=== PATIENT | female | born 1985 | race Caucasian/White ===

== ENCOUNTER 2021-09-02 20:21 | Emergency (ER) | payer OTHER, SELFPAY ==
[2021-09-02 20:24] VITALS: BP 137/79; PULSE 111; RESP 20; TEMP 37.1; O2SAT 98; BMI 22.9
--- NOTE | 2021-09-02 20:40 | PC.NURSE ---
CALLED FOR ROOM ASSIGNMENT PATIENT NOT INT HE WAITING ROOM WHEN CALLED. REGISTRATION DID NOT SEE THE PATIENT LEAVE, WILL ATTEMPT TO CALL PATIENT AGAIN.
--- NOTE | 2021-09-02 21:02 | PC.NURSE ---
AGAIN CALLING PATIENTS NAME IN THE WAITING ROOM, BATHROOMS CHECKED, OUTSIDE THE WAITING ROOM DOORS CHECKED. NO RESPONSE. PATIENT IS NOT IN THE WAITING AREA. PATIENT HAS NOT BEEN SEEN BY STAFF SINCE SHE WAS TRIAGED.
== END 2021-09-02 21:11 | disposition left against medical advice (07) ==
PROVIDERS: Emergency Provider Emergency Medicine
DX: R11.10 Vomiting, unspecified (principal); R10.9 Unspecified abdominal pain
CPT/HCPCS: 99281; 99282